=== PATIENT | female | born 1995 | race Caucasian/White ===

== ENCOUNTER 2016-03-13 20:12 | Emergency (ER) | payer BC ==
[~2016-03-13] VITALS: Ht 160 cm; Wt 82.5 kg
[~2016-03-13 20:12] MED LIST: ASTHMA INHALER; MAG-19 PO; OMEP20CA16 PO; ONDA4TAB14 PO; PREN-39 PO
[2016-03-13 20:25] VITALS: Ht 160 cm; Wt 82.5 kg
[2016-03-13] MEDS ORDERED: IBUP-1542 PO (23:13)
[2016-03-13] MEDS ORDERED: ULT50 PO (23:13)
[2016-03-13] MEDS ORDERED: OSLT75C PO (23:14)
--- NOTE | 2016-03-13 23:22 | ERD ---
ER Documentation Chief Complaint Date/Time DATE: 03/13/16 TIME: 23:14 Chief Complaint MIDDLE LOWER BACK PAIN/HEADACHE/DIZZINESS SINCE YESTERDAY HPI Patient is a 20-year-old female who presents to the emergency department with numerous concerns including back pain and flulike symptoms. Patient states that she's been having lower back pain since December 2015, post delivery of her child. Patient states that she had an epidural at that time. Since then she's been having intermittent pain. The pain is worse with movement. The pain does not radiate to her legs. Patient denies any numbness or tingling in her legs. Patient denies any saddle anesthesia, urinary incontinence, stool incontinence, falls or IV drug use. Patient states that yesterday she started having generalized body aches and headache. Patient states the head pain is primarily in the frontal region. She denies any sudden onset. She states that her headache has been getting gradually worse throughout the day. Patient denies any photophobia, phonophobia , nausea, vomiting or loss of consciousness. She reports a dry cough. Patient also complaining of some throat irritation. Patient denies any muffled voice, drooling, hyperextension of her neck. Patient has normal range of motion of her neck. Patient states that she did feel feverish but did not take her temperature. Patient last took Tylenol and Ibuprofen at 6pm. She denies any ear pain, abdominal pain, diarrhea, chest pain, shortness of breath. No recent travel. No sick contacts. ROS All systems reviewed and are negative except as per history of present illness. Medications Home Meds Active Scripts Oseltamivir Phosphate* (Tamiflu*) 75 Mg Capsule, 75 MG PO BID for 5 Days, CAP Prov:PARIS JACK PA-C 03/13/16 Ibuprofen* (Motrin*) 600 Mg Tab, 600 MG PO Q6, #30 TAB Prov:PARIS JACK PA-C 03/13/16 Tramadol HCl (Tramadol HCl) 50 Mg Tablet, 50 MG PO Q4 Y for PAIN, #10 TAB Prov:PARIS JACK PA-C 03/13/16 Ondansetron (Ondansetron Odt) 4 Mg Tab.rapdis, 4 MG PO Q8 Y for NAUSEA AND/OR VOMITING, #30 TAB Prov:ZIYAD MARLOW NP 01/19/16 Omeprazole* (Omeprazole*) 20 Mg Capsule.dr, 20 MG PO DAILY, #30 Prov:ZIYAD MARLOW ELMA Chambers NP 01/19/16 Magaldrate/Simethicone* (Mylanta*) 355 Ml Susp, 30 ML PO QID Y for GASTROINTESTINAL UPSET, #1 BOTTLE Prov:ZIYAD MARLOW ELMA Chambers NP 01/19/16 Reported Medications Vits W-Ca,Fe,Fa(<1MG) ( Vitamins) 1 Tab Tablet, 1 TAB PO DAILY , TAB 08/24/15 [Asthma Inhaler] No Conflict Check 08/25/09 Allergies Allergies: Coded Allergies: No Known Drug Allergies (Verified Allergy, Mild, 12/22/15) PMhx/Soc Medical and Surgical Hx: pt denies Medical Hx, pt denies Surgical Hx History of Surgery: No Anesthesia Reaction: No Hx Neurological Disorder: No Hx Respiratory Disorders: No Hx Cardiac Disorders: No Hx Psychiatric Problems: No Hx Miscellaneous Medical Probl: No Hx Alcohol Use: No Hx Substance Use: No Hx Tobacco Use: No Smoking Status: Never smoker FmHx Family History: diabetes Physical Exam Vitals Vital Signs Date Time Temp Pulse Resp B/P Pulse Ox O2 Delivery O2 Flow Rate FiO2 03/13/16 23:36 99.7 100 16 116/63 97 Room Air 03/13/16 20:25 99.1 114 16 127/61 97 Physical Exam GENERAL: Well-developed, well-nourished female. Appears in no acute distress. Speaking in full sentences HEAD: Normocephalic, atraumatic. No deformities or ecchymosis. EYE: Pupils equal, round, and reactive to light. EOMs intact. No conjunctival erythema. No scleral icterus. No eye discharge. ENT: External ear without any masses or tenderness. Auditory canals clear bilaterally. TM visualized bilaterally, non-erythematous, non-bulging. Nasal mucosa pink with no discharge. Oropharynx is pink without any tonsillar erythema or exudates. No uvula deviation. No kissing tonsils. NECK: Supple. No lymphadenopathy or thyromegaly. No meningismus. Hyperextension of the neck. Normal range of motion of the neck. LUNG: Clear to auscultation bilaterally. No rhonchi, wheezing, rales or coarse breath sounds. HEART: Regular rate and rhythm. No murmurs, rubs or gallops. ABDOMEN: Soft, nontender, and nondistended. Positive bowel sounds in all four quadrants. No rebound tenderness, no guarding. (-) McBurney's point tenderness. No CVA tenderness. BACK: No midline tenderness. Tender to palpation in bilateral lumbar paraspinal muscles. Normal active range of motion of the back. Negative straight leg test bilaterally. EXTREMITIES: Equal pulses bilaterally. No peripheral clubbing, cyanosis or edema. No unilateral leg swelling. NEUROLOGIC: Alert and oriented to person, place and time. Moving all four extremities. 5/5 strength in all extremities. Normal speech. Steady gait. (-) Brudzinski sign- no flexion of the hips and knees noted with neck flexion. (-) Kernigs sign- patient able to extend knee to 180 degrees with hip flexion, no hamstring stiffness noted. SKIN: Normal color. Warm and dry. No rashes or lesions. Procedures/MDM MEDICAL DECISION MAKING: This is a 20-year-old female who presents with lower back pain 3 months, flulike symptoms 1 day. Vital signs were reviewed. Patient was afebrile. Back exam revealed no midline tenderness. Tender to palpation in bilateral lumbar paraspinal muscles. Normal active range of motion of the back. Negative straight leg test bilaterally. Patient denied saddle anesthesia, urinary incontinence, stool incontinence, trauma or IV drug use. Given these findings, the patients back pain is most consistent with lumbar strain vs muscle spasm. I have a much lower clinical concern for cauda equine syndrome, spinal fractures, epidural abscess, osteomyelitis, aortic dissection, ruptured or leaking AA, DJD , sciatica, pyelonephritis or nephrolithiasis. Patient also reported having tactile fevers, dry cough, throat irritation, headache and generalized body aches x 1 day. ENT exam was normal normal. Lung exam was normal. Abdominal exam was normal. At this time, the patient's symptoms are most consistent with influenza. I have a much lower clinical concern for bacterial infections including pneumonia, meningitis, sinusitis, otitis externa, acute otitis media, strep pharyngitis, epiglottitis or peritonsillar abscess. Given the patient's symptoms started yesterday, patient will be given a prescription for Tamiflu. PRESCRIPTIONS: Ibuprofen, Tramadol for back pain Tamiflu for flu-like symptoms DISCHARGE: At this time, patient is stable for discharge and outpatient management. I have instructed the patient to follow-up with his/her primary care physician in 1-2 days. I have discussed with the patient the possibility of needing to see an certified coding specialist for further workup and imaging if the pain persists. I have instructed the patient to promptly return to the ER for any new or worsening symptoms including increased pain, swelling, warmth, urinary incontinence, stool incontinence, weakness, persistent fevers or LOC. The patient and/or family expressed understanding of and agreement with this plan. All questions were answered. Home care instructions were provided. MEDICAL DECISION MAKING: This is a [] who presents with []. Vital signs were reviewed. Patient was afebrile. Patient was not hypoxic. ENT exam was normal. Given these findings, the patients presentation is most consistent with viral URI. I have a much lower clinical concern for bacterial infections including pneumonia, meningitis , sinusitis, otitis externa, acute otitis media, strep pharyngitis, epiglottitis or peritonsillar abscess. PRESCRIPTIONS: Tylenol/Ibuprofen for fever and pain control. DISCHARGE: At this time, patient is stable for discharge and outpatient management. Supportive therapies such as OTC throat lozenges, salt water gurgles, popsicles and jello discussed. I have instructed the patient to follow-up with his/her primary care physician in 1-2 days. I have instructed the patient to promptly return to the ER for any new or worsening symptoms including increased pain, swelling, fever, nausea, vomiting, weakness or difficulty breathing. The patient and/or family expressed understanding of and agreement with this plan. All questions were answered. Home care instructions were provided. Departure Diagnosis: Primary Impression: Influenza Additional Impression: Lower back pain Chronicity: acute Back pain laterality: unspecified Sciatica presence: without sciatica Qualified Code: M54.5 - Acute low back pain without sciatica , unspecified back pain laterality Condition: Stable Patient Instructions: Back Pain (Acute Or Chronic), Influenza (Adult) Referrals: [facility] YOU HAVE RECEIVED A MEDICAL SCREENING EXAM AND THE RESULTS INDICATE THAT YOU DO NOT HAVE A CONDITION THAT REQUIRES URGENT TREATMENT IN THE EMERGENCY DEPARTMENT. FURTHER EVALUATION AND TREATMENT OF YOUR CONDITION CAN WAIT UNTIL YOU ARE SEEN IN YOUR DOCTORS OFFICE WITHIN THE NEXT 1-2 DAYS. IT IS YOUR RESPONSIBILITY TO MAKE AN APPOINTMENT FOR FOLOW-UP CARE. IF YOU HAVE A PRIMARY DOCTOR --you should call your primary doctor and schedule an appointment IF YOU DO NOT HAVE A PRIMARY DOCTOR YOU CAN CALL OUR PHYSICIAN REFERRAL HOTLINE AT IF YOU CAN NOT AFFORD TO SEE A PHYSICIAN YOU CAN CHOSE FROM THE FOLLOWING [facility] [address] [facility] [address] [facility] [address] [facility] [address] [facility] [address] [facility]. [facility] [address] [facility]. [facility] YOU HAVE RECEIVED A MEDICAL SCREENING EXAM AND THE RESULTS INDICATE THAT YOU DO NOT HAVE A CONDITION THAT REQUIRES URGENT TREATMENT IN THE EMERGENCY DEPARTMENT. FURTHER EVALUATION AND TREATMENT OF YOUR CONDITION CAN WAIT UNTIL YOU ARE SEEN IN YOUR DOCTORS OFFICE WITHIN THE NEXT 1-2 DAYS. IT IS YOUR RESPONSIBILITY TO MAKE AN APPOINTMENT FOR FOLOW-UP CARE. IF YOU HAVE A PRIMARY DOCTOR --you should call your primary doctor and schedule and appointment IF YOU DO NOT HAVE A PRIMARY DOCTOR YOU CAN CALL OUR PHYSICIAN REFERRAL HOTLINE AT . IF YOU CAN NOT AFFORD TO SEE A PHYSICIAN YOU CAN CHOSE FROM THE FOLLOWING [facility]: [facility] [address] [place] [address] [facility] [address] [place] [address] [facility] [address] [place] [address] Additional Instructions: Call your primary care doctor TOMORROW for an appointment during the next 1-2 days.See the doctor sooner or return here if your condition worsens before your appointment time. Take Tylenol and Motrin for any fevers and pain. PARIS JACK PA-C Mar 13, 2016 23:22
[2016-03-13 23:36] VITALS: BP 116/63; PULSE 100; RESP 16; TEMP 99.7
== END 2016-03-13 23:36 | disposition home or self-care (01) ==
LOC: FTE 20:12
DX: J11.1 Influenza due to unidentified influenza virus with other respiratory manifestations (principal)
CPT/HCPCS: 99284

== ENCOUNTER 2017-03-09 21:52 | Emergency (ER) | END 2017-03-10 03:20 | disposition home or self-care (01) ==

== ENCOUNTER 2017-09-09 22:23 | Emergency (ER) | END 2017-09-10 01:33 | disposition home or self-care (01) ==

== ENCOUNTER 2018-12-26 14:38 | Emergency (ER) | payer BC ==
[~2018-12-26] VITALS: Ht 160 cm; Wt 80.1 kg
[~2018-12-26 14:38] MED LIST changes: +ACET500C5 PO; +BISM-34 PO; +DICY10CA40 PO; +DIPH1TAB PO; +HYDR-4011 PO; +IBUP-1542 PO; +NAPR-688 PO; -OMEP20CA16 PO; +OMEP20CA17 PO; +OSEL75CA23 PO; +TRAM50TA2 PO
[2018-12-26 14:50] VITALS: BP 108/56; Ht 160 cm; Wt 80.1 kg
[2018-12-26] MEDS ORDERED: ACETAMINOPHEN 500 MG TAB PO STA (16:26)
[2018-12-26 19:14] VITALS: PULSE 75; RESP 18
== END 2018-12-26 19:15 | disposition home or self-care (01) ==
LOC: FTE 14:38
DX: O34.81 Maternal care for other abnormalities of pelvic organs, first trimester (principal); Q50.5 Embryonic cyst of broad ligament; Z3A.13 13 weeks gestation of pregnancy
CPT/HCPCS: 76805; 80048; 81001; 84702; 85025; 86900; 86901; Z7610; 81003